=== PATIENT | female | born 2000 | race Caucasian/White ===

== ENCOUNTER 2020-06-21 20:11 | Inpatient (IN) ==
[2020-06-21 20:33] VITALS: BMI 38.9
[2020-06-21 20:38] LABS: BILIRUBIN,URINE NEGATIVE (NEGATIVE); BLOOD/HEMOGLOBIN,URINE 2+ (NEGATIVE); GLUCOSE, URINE NEGATIVE (NEGATIVE); KETONES,URINE NEGATIVE (NEGATIVE); LEUKOCYTE ESTERASE ,URINE NEGATIVE (NEGATIVE); NITRITES,URINE NEGATIVE (NEGATIVE); PROTEIN,URINE NEGATIVE (NEGATIVE); UROBILINOGEN,URINE NORMAL (NORMAL)
[2020-06-21 20:50] LABS: AMNISURE ROM TEST THERE IS A RUPTURE (NO RUPTURE)
[2020-06-21 20:53] LABS: APPEARANCE,URINE CLEAR (CLEAR); COLOR,URINE STRAW (YELLOW)
[2020-06-21 20:54] LABS: BACTERIA,URINE TRACE /HPF (NEGATIVE); RBC,URINE 0-2 /HPF (0-3); SQUAMOUS EPITHELIAL CELL,UR FEW /HPF (NEGATIVE)
[2020-06-21] MEDS ORDERED: BETADINE SOLN ONE (21:58)
[2020-06-21] MEDS ORDERED: D5 1/2 NS 1000 ML 1,000 ML IV ONE (21:58)
[2020-06-21] MEDS ORDERED: PITOCIN ONE (21:58)
[2020-06-21] MEDS ORDERED: D5 1/2 NS 1L W PITOCIN 20 UNITS/L 20 UNITS/1,000 ML BAG IV ONE (21:59)
[2020-06-21] MEDS ORDERED: D5LR 1L W PITOCIN 10 UNITS/L 10 UNITS/1,000 ML BAG IV ONE (21:59)
[2020-06-21] MEDS ORDERED: PITOCIN IVP ONE (22:03)
[2020-06-21] MEDS ORDERED: PHENERGAN INJ 25 MG IM PRN (22:03)
[2020-06-21] MEDS ORDERED: AMPICILLIN VIAL 2 GRAM ONE (22:21)
[2020-06-21] MEDS ORDERED: NS 100 ML IV 100 ML IV ONE (22:21)
[2020-06-21 22:40] LABS: BASOPHILS % (AUTO) 0.2 % (0.2-1.0); EOSINOPHILS # (AUTO) 0.1 x10^3/uL (0.0-0.2); EOSINOPHILS % (AUTO) 0.8 % (0.9-2.9); HEMATOCRIT 38.5 % (36.0-47.0); HEMOGLOBIN 12.7 g/dL (12.0-16.0); LYMPHOCYTES # (AUTO) 2.8 X10^3/uL (1.3-2.9); LYMPHOCYTES % (AUTO) 22.7 % (21.0-51.0); MEAN CORPUSCULAR HEMOGLOBIN 27.8 pg (27.0-34.0); MEAN CORPUSCULAR VOLUME 84.1 fL (80.0-100.0); MEAN PLATELET VOLUME 8.7 fL (7.4-11.0); MONOCYTES # (AUTO) 0.7 x10^3/uL (0.3-0.8); MONOCYTES % (AUTO) 5.8 % (0.0-13.0); NEUTROPHILS # (AUTO) 8.7 x10^3/uL (2.2-4.8); NEUTROPHILS % (AUTO) 70.5 % (42.0-75.0); PLATELET COUNT 207 X10^3/uL (150.0-450.0); RED BLOOD COUNT 4.58 X10^6/uL (3.5-5.4); RED CELL DISTRIBUTION WIDTH 14.6 % (11.6-16.5); WHITE BLOOD COUNT 12.4 X10^3/uL (3.6-10.0)
[2020-06-21 22:42] LABS: BLOOD UREA NITROGEN 9 mg/dL (7-18); CARBON DIOXIDE 24.8 mmol/L (21-32); CHLORIDE 104 mmol/L (98-107); CREATININE 0.64 mg/dL (0.55-1.02); SODIUM 138 mmol/L (136-145); eGFR NON BLACK RACES > 60 (>60)
[2020-06-21] MEDS: D5 1/2 NS 1000 ML 1,000 ML IV SCH (23:00)
[2020-06-21] MEDS ORDERED: AMPICILLIN VIAL 2 GRAM 2 G in NS 100 ML IV + SPIKE MINIBAG* 100 ML IV SCH (23:00)
[2020-06-21] MEDS ORDERED: LR 1000 ML IV 1,000 ML IV ONE (23:16)
[2020-06-21] MEDS ORDERED: STADOL INJ ONE (23:20)
[2020-06-21] MEDS: STADOL INJ IVP PRN (23:25)
[2020-06-22] MEDS: AMPICILLIN VIAL 1 GRAM 1 G in NS 100 ML IV + SPIKE MINIBAG* 100 ML IV SCH ×9 (02:25→12:58)
[2020-06-22] MEDS: STADOL INJ IVP PRN ×3 (03:40→09:00)
[2020-06-22] MEDS: REGLAN INJ 10 MG VIAL IVP PRN ×2 (03:40→13:34)
[2020-06-22] MEDS ORDERED: D5LR 1L W PITOCIN 10 UNITS/L 10 UNITS/1,000 ML BAG IV PRN ×2 (04:16→06:00)
[2020-06-22] MEDS: D5 1/2 NS 1000 ML 1,000 ML IV SCH ×3 (08:50→23:38)
--- NOTE | 2020-06-22 09:41 | DR.OB ---
OB QUICK NOTE Assessment/Plan (1) PROM (premature rupture of membranes): Assessment/Plan: cx now 3cm/95%/-2 FHR-130 reactive. IUPC/scalp electrode in place ctx q4min
[2020-06-22] MEDS ORDERED: AMPICILLIN VIAL 1 GRAM ONE (10:35)
[2020-06-22] MEDS ORDERED: NS 100 ML IV 100 ML IV ONE (10:35)
[2020-06-22] MEDS ORDERED: BETADINE SURGICAL SCRUB ONE (12:03)
[2020-06-22] MEDS ORDERED: MOTRIN TAB 800 MG PO PRN ×2 (12:43→14:09)
[2020-06-22] MEDS ORDERED: PHENERGAN INJ 25 MG IM PRN (12:43)
[2020-06-22] MEDS ORDERED: D5 1/2 NS 1000 ML 1,000 ML with PITOCIN 20 UNITS IV SCH ×2 (13:00)
[2020-06-22] MEDS ORDERED: REGLAN INJ 10 MG VIAL ONE (13:31)
[2020-06-22] MEDS ORDERED: MOTRIN TAB 800 MG PO ONE (13:49)
[2020-06-22] MEDS ORDERED: MILK OF MAGNESIA PO PRN (14:09)
[2020-06-22] MEDS ORDERED: AMBIEN PO PRN (14:09)
[2020-06-22] MEDS ORDERED: DERMOPLAST PAIN RELIEF SPRAY TOP PRN (14:09)
[2020-06-22] MEDS ORDERED: DERMOPLAST PAIN RELIEF SPRAY ONE (20:49)
[2020-06-23] MEDS ORDERED: MOTRIN TAB 800 MG PO ONE (04:07)
[2020-06-23 05:57] LABS: HEMATOCRIT 32.9 % (36.0-47.0); HEMOGLOBIN 11.4 g/dL (12.0-16.0)
--- NOTE | 2020-06-23 08:24 | NOTE.PROOB ---
progress Note OB- Subjective Data Subjective: No complaints, decreased lochia. Tolerating regular diet. No N/V. Ambulating well. No dysuria. Objective Data Result Diagrams: 06/23/20 03:55 06/21/20 22:25 Objective Data: CV= RRR no MRG Lungs=CTA Bilaterally Abd=(+) BS, soft, NTND, Fundus firm/NT/ at { } cm below umbilicus. Ext=no edema, NT, no cords Assessment Assessment: ready for d/c Plan (1) PROM (premature rupture of membranes): (2) Gestational hypertension affecting second : Plan: d/c when is ready for d/c. She will f/u in 5-6 weeks in the office. She is considering OCP's as BC options.
[2020-06-23] MEDS ORDERED: PRENATAL PLUS PO SCH (09:00)
[2020-06-23] MEDS: D5 1/2 NS 1000 ML 1,000 ML IV SCH (11:56)
[2020-06-23 12:49] VITALS: BP 125/62
== END 2020-06-23 14:00 | disposition home or self-care (01) | DRG 807 ==
LOC: ER 20:15 → LD 21:58 → OBS 06-22 13:51
PROVIDERS: ADMIT Obstetrics & Gynecology; ATTEND Obstetrics & Gynecology
DX: Z3A.35 35 weeks gestation of pregnancy; O13.3 Gestational [pregnancy-induced] hypertension without significant proteinuria, third trimester; O60.14X0 Preterm labor third trimester with preterm delivery third trimester, not applicable or unspecified; Z37.0 Single live birth; Z20.822 Contact with and (suspected) exposure to COVID-19